=== PATIENT | male | born 1960 | race Caucasian/White ===

== ENCOUNTER 2016-11-22 09:13 | Day surgery (SDC) | payer BC ==
[2016-11-15 08:41] VITALS: BMI 28.8
[2016-11-22] MEDS ORDERED: LIDOCAINE HCL/EPINEPHRINE/PF 20 ML VIAL ONE (09:32)
[2016-11-22] MEDS ORDERED: methylPREDNISolone NA SUCC 40 MG/1 ML VIAL ONE (09:32)
[2016-11-22] MEDS ORDERED: LIDOCAINE HCL 1%, 10 MG/ML (20ML VIAL) ONE (09:32)
[2016-11-22] MEDS ORDERED: PHENYLEPHRINE 2.5% OPHTH SOLN 15 ML BOTTLE ONE (09:32)
[2016-11-22] MEDS ORDERED: LIDOCAINE HCL 2% JELLY 10 ML CARTRIDGE ONE ×2 (09:32→09:33)
[2016-11-22] MEDS: TOBRA 0.3%/DEXAMETH 0.1% OPHTHALMIC SUSP 2.5 ML BTL ONE ×3 (09:55→10:15)
[2016-11-22] MEDS ORDERED: TETRACAINE 0.5% OPHTH SOLN 2 ML BOTTLE ONE (10:24)
[2016-11-22] MEDS ORDERED: ACETAMINOPHEN 325 MG TABLET (FP) PO PRN (11:04)
[2016-11-22] MEDS ORDERED: MIDAZOLAM HCL 2 MG/2 ML SINGLE DOSE VIAL ONE (11:10)
[2016-11-22 13:19] VITALS: TEMP 98
[2016-11-22] MEDS ORDERED: ACETAMINOPHEN 325 MG TABLET (FP) ONE (13:26)
[2016-11-22 14:19] VITALS: BP 128/71; PULSE 60
[2016-11-22] MEDS ORDERED: MITOMYCIN 0.02% EYE DROPS - 2ML VIAL IO ONE (15:00)
--- NOTE | 2016-11-23 11:16 | OP ---
DATE OF OPERATION: 11/22/2016 PROCEDURE: Excision of pterygium of the left eye with ocular surface reconstruction by use of conjunctival autograft, left eye, and use of Mitomycin solution. SURGEON: Srini Bolton MD HEAD COOK SURGEON: Srini Bolton MD COMPLICATIONS: None. PREOPERATIVE DIAGNOSIS: Pterygium with corneal overgrowth left eye. 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 ANESTHESIOLOGIST: Carlos Alvraez MD ANESTHESIA: Local standby anesthesia. FINDINGS OF PROCEDURE: After a lid block was performed on the left eye subcutaneously, the patient was prepped and draped in the usual manner to expose the left eye, and Tegaderm strips were placed on the eye as was lid speculum. It should be noted that topical anesthesia also was given using tetracaine ophthalmic solution and lidocaine gel. In the operating room, microscope then was brought into position over the left eye after the speculum had been inserted into the left eye. Traction sutures were placed at the 12 o'clock and 6 o'clock position of 6-0 Vicryl in the eye placed in the abducted position. Attention was focused on the pterygium where the body of the pterygium was outlined with a marker. Then using Juany scissors and , the body of the pterygium was excised and then the head was followed using a combination of Juany scissors and crescent blade. Corneal surface was smoothed off with a crescent blade then hemostasis with electrocautery. Mitomycin ophthalmic solution 0.02% was placed on the excision site for approximately 10 minutes with a moistened Weck-Miracle sponge and then this was removed and then the area copiously irrigated with BSS. This was followed by closure of the large conjunctival defect partial closure using 3 interrupted 2-0 Ethilon sutures. The resultant defect, which was 3 mm x 7 mm was closed using conjunctival autograft harvested in the superotemporal area with a limbal-based conjunctival autograft with a limbal cell facing the cornea. This conjunctival autograft was sutured into place using 6 interrupted 10-0 Ethilon sutures. At this point, the conjunctival defect was closed, and no pterygium removed on the cornea. The globe was intact, round. The pupil was round and reflexive to light, and a red reflex was obtained. The traction sutures were cut and removed from the eye after the subconjunctival injection of 40 mg of Solu-Medrol lidocaine was injected into the inferior cul-de-sac temporally. Topical bacitracin ophthalmic ointment was placed. Speculum and Tegaderm strips were removed from the eye, and the lids were closed. A patch and shield placed on the eye, and the patient was discharged from the operating room to the recovery room in good condition after tolerating the procedure well. Ginger [id number]
== END 2016-11-22 14:15 | disposition home or self-care (01) ==
LOC: FASU 09:13
PROVIDERS: ATTEND Ophthalmology
PROC: 08RTX7Z Replacement of Left Conjunctiva with Autologous Tissue Substitute, External Approach (ICD-10-PCS; principal; 2016-11-22 11:42)
DX: H11.002 Unspecified pterygium of left eye (principal)